=== PATIENT | female | born 1965 | race Asian ===

== ENCOUNTER 2025-06-30 11:04 | Outpatient (CLI) | payer MEDICAID ==
[~2025-06-30 11:04] MED LIST: IBUP-1984 PO; METF500T PO
--- NOTE | 2025-06-30 14:33 | RADIOLOGY REPORT ---
INDICATION: ACUTE BACK PAIN COMPARISON: None TECHNIQUE: 3 views of the lumbar spine were obtained. FINDINGS: The lumbar vertebral alignment is normal. Multilevel degenerative changes most severe at L5-S1 causing moderate to severe neural foraminal spinal canal stenosis No acute fracture, vertebral compression deformity or aggressive osseous lesions. The paravertebral soft tissues are grossly unremarkable. IMPRESSION: No acute fracture or subluxation.
== END 2025-06-30 23:59 | disposition home or self-care (01) ==
LOC: RAD 11:04
PROVIDERS: ATTEND Family Medicine
DX: M47.817 Spondylosis without myelopathy or radiculopathy, lumbosacral region (principal); M48.07 Spinal stenosis, lumbosacral region; M54.9 Dorsalgia, unspecified
CPT/HCPCS: 72100